=== PATIENT | male | born 1940 | race Two or more races ===

== ENCOUNTER 2024-03-19 08:59 | Outpatient (CLI) | payer OTHER ==
[~2024-03-19 08:59] MED LIST: ASPIRINA 81 MG.; ATACAND32 MG; FIBER LAX625 MG; LIPITOR; NORVASC5 MG PO; PLAVIX75 MG; PRENISONA; PROTONIX40 MG PO; VASOTEC5 MG; ZOCOR5 MG
== END 2024-03-19 09:07 | disposition home or self-care (01) ==
LOC: MRI 08:59
PROVIDERS: ATTEND Specialist
DX: F01.50 Vascular dementia, unspecified severity, without behavioral disturbance, psychotic disturbance, mood disturbance, and anxiety (principal)
CPT/HCPCS: 70551

== ENCOUNTER 2024-11-04 09:11 | Outpatient (CLI) | payer OTHER | END 2024-11-04 09:17 | disposition home or self-care (01) | LOC: SONOGRAMA 09:11 | PROVIDERS: ATTEND Specialist/Technologist, Other Nephrology | DX: R10.9 Unspecified abdominal pain (principal); N18.30 Chronic kidney disease, stage 3 unspecified; R31.9 Hematuria, unspecified ==

== ENCOUNTER 2025-03-24 02:31 | Emergency (ER) | payer OTHER ==
[~2025-03-24] VITALS: Ht 167.6 cm; Wt 71.7 kg
[2025-03-24] MEDS ORDERED: CLONIDINE HCL 0.1 MG TABLET PO ONE ×2 (03:40→03:45)
[2025-03-24] MEDS ORDERED: ACETAMINOPHEN 500 MG GEL..CAP PO ONE ×2 (03:40→03:45)
[2025-03-24 03:50] LABS: BASO % 0.4 % (0.1-1.2); EOS # 0.12 (0.04-0.54); EOS % 1.5 % (0.7-7.0); LYMPH # 1.22 (1.18-3.74); LYMPH % 15.3 % (19.3-53.1); MEAN PLATELET VOLUME 11.30 fl (9.4-12.4); MONO # 0.71 (0.24-0.82); MONO % 8.9 % (4.7-12.5); NEUT # 5.87 (1.56-6.13); NEUT % 73.4 % (34.0-71.1); RED CELL DISTRIBUTION WIDTH 12.7 % (11.6-14.4)
[2025-03-24 04:09] LABS: ALT/SGPT 23.0 U/L (12-78); AST/SGOT 23.0 U/L (15-37); BILIRUBIN TOTAL 0.56 mg/dL (0.3-1.2); BUN CREA RATIO 12.0 (7.0-25.0); CREATININE SERUM 1.67 mg/dL (0.70-1.30); GFR 39.29; GLOBULINA 3.7 G/DL (2.4-3.5); GLUCOSE FASTING 111.0 mg/dL (65-100); OSMOLALITY SERUM 292.0 MOSM/KG (275-295)
[2025-03-24] MEDS ORDERED: hydrALAZINE HCL 20 MG VIAL IV ONE (04:45)
[2025-03-24 09:01] VITALS: BP 148/64; O2SAT 98
== END 2025-03-24 11:15 | disposition home or self-care (01) ==
LOC: ER 02:31
PROVIDERS: Preventive Medicine Public Health & General Preventive Medicine
DX: I16.9 Hypertensive crisis, unspecified (principal)
CPT/HCPCS: 36415; 93005; 96365; 99282; J3490